=== PATIENT | male | born 1985 | race Two or more races ===

== ENCOUNTER 2017-08-02 10:11 | Emergency (ER) | payer OTHER ==
[~2017-08-02] VITALS: Ht 170.2 cm; Wt 77.1 kg
[2017-08-02 11:37] VITALS: BP 108/79
== END 2017-08-02 12:10 | disposition home or self-care (01) ==
LOC: ER 10:11
DX: J20.9 Acute bronchitis, unspecified (principal); J03.90 Acute tonsillitis, unspecified

== ENCOUNTER 2019-05-08 07:59 | Emergency (ER) | payer OTHER ==
[~2019-05-08] VITALS: Ht 170.2 cm; Wt 77.1 kg
[2019-05-08 08:05] VITALS: BP 122/71
== END 2019-05-08 08:32 | disposition home or self-care (01) ==
LOC: ER 08:03
DX: H10.31 Unspecified acute conjunctivitis, right eye (principal); J03.80 Acute tonsillitis due to other specified organisms; B97.89 Other viral agents as the cause of diseases classified elsewhere